=== PATIENT | male | born 1965 | race Two or more races ===

== ENCOUNTER 2017-08-04 19:41 | Emergency (ER) | payer OTHER ==
[~2017-08-04] VITALS: Ht 162.6 cm; Wt 74.8 kg
[2017-08-04 19:54] VITALS: BP 135/92
--- NOTE | 2017-08-04 20:27 | PHYS DOC ---
Past Medical History Past Medical History: No Pertinent History Past Surgical History: No Surgical History Alcohol Use: None Drug Use: None Adult General Chief Complaint Chief Complaint: HAND PROBLEM HPI HPI Patient is a 52 year old male presents the ED complaining of right hand injury times one day. Patient states he was using a jackhammer and the hammer kicked back on his right hand. States he uses a jackhammer at work with repetitive motion. Discussed pain as sharp. Rates the pain as 7 out of 10. States the pain is worse with movement of the lateral side of his hand. Denies fever, numbness/ tingling, elbow pain, dizziness, chest pain or shortness of breath. Review of Systems Review of Systems Constitutional: Denies fever or chills [] Eyes: Denies change in visual acuity, redness, or eye pain [] HENT: Denies nasal congestion or sore throat [] Respiratory: Denies cough or shortness of breath [] Cardiovascular: No additional information not addressed in HPI [] GI: Denies abdominal pain, nausea, vomiting, bloody stools or diarrhea [] : Denies dysuria or hematuria [] Musculoskeletal: Denies back pain. Complains of right hand pain. [] Integument: Denies rash or skin lesions [] Neurologic: Denies headache, focal weakness or sensory changes [] Endocrine: Denies polyuria or polydipsia [] Current Medications Current Medications Current Medications Medications (Trade) Dose Ordered Sig/Fawn Start Time Stop Time Status Last Admin Dose Admin Ibuprofen (Motrin) 800 mg 1X ONCE 08/04/17 20:30 08/04/17 20:31 DC 08/04/17 20:34 800 MG Allergies Allergies Allergies Coded Allergies Type Severity Reaction Last Updated Verified No Known Drug Allergies 06/04/14 No Physical Exam Physical Exam Constitutional: Well developed, well nourished, no acute distress, non-toxic appearance. [] HENT: Normocephalic, atraumatic, bilateral external ears normal, oropharynx moist, no oral exudates, nose normal. [] Eyes: PERRLA, EOMI, conjunctiva normal, no discharge. [] Neck: Normal range of motion, no tenderness, supple, no stridor. [] Cardiovascular:Heart rate regular rhythm, no murmur [] Lungs & Thorax: Bilateral breath sounds clear to auscultation [] Abdomen: Bowel sounds normal, soft, no tenderness, no masses, no pulsatile masses. [] Skin: Warm, dry, no erythema, no rash. [] Back: No tenderness, no CVA tenderness. [] Extremities: MILD RIGHT LATERAL HAND TENDERNESS. NO OVERLYING SKIN CHANGES OR SIGNS OF INFECTION., no cyanosis, no clubbing, ROM intact, no edema. [] Neurologic: Alert and oriented X 3, normal motor function, normal sensory function, no focal deficits noted. [] Psychologic: Affect normal, judgement normal, mood normal. [] Current Patient Data Vital Signs Vital Signs Date Time Temp Pulse Resp B/P (MAP) Pulse Ox O2 Delivery O2 Flow Rate FiO2 08/04/17 19:54 98.1 96 20 98 Room Air 98.1 EKG EKG [] Radiology/Procedures Radiology/Procedures PROCEDURE: HAND RIGHT 3V Three-view right hand radiographs 08/06/2017 Clinical history: Injury to the right hand earlier today. PA, lateral and oblique digital radiographs of the right hand were obtained. No fracture or dislocation right hand is seen. Mild degenerative changes are seen scattered throughout the interphalangeal joints of the right hand. Mild to moderate degenerative changes are seen involving the MCP joints. Severe degenerative changes are seen involving the first carpal metacarpal joint. No radiopaque foreign body is seen. Impression: No fracture or dislocation of the right hand is seen.[] Course & Med Decision Making Course & Med Decision Making Pertinent Labs and Imaging studies reviewed. (See chart for details) []X-ray negative for acute injury. Patient's pain improved. Vital stable, no acute distress. Thumb spica splint placed. Neurovascular intact post placement. Discussed follow-up with orthopedics next week. Provided contact information/ education. Discussed reasons to return to the ED. Patient understands and agrees with plan. Dragon Disclaimer Dragon Disclaimer This electronic medical record was generated, in whole or in part, using a voice recognition dictation system. Departure Departure Impression: Primary Impression: Hand injury Additional Impression: Tendonitis Disposition: 01 HOME, SELF-CARE Condition: IMPROVED Referrals: JONNY SULLIVAN MD (PCP) LESLI CORTEZ II, MD Patient Instructions: Hand Injuries, Tendon Injury Scripts Tramadol Hcl (TRAMADOL HCL) 50 Mg Tablet 1 TAB PO PRN Q6HRS, #12 TAB Prov: KRYSTYNA ALVA 08/04/17 Ibuprofen (IBUPROFEN) 800 Mg Tablet 800 MG PO PRN Q6HRS Y for INFLAMMATION, #14 TAB Prov: KRYSTYNA ALVA 08/04/17 Problem Qualifiers KRYSTYNA ALVA Aug 04, 2017 20:27
[2017-08-04] MEDS ORDERED: IBUPROFEN 800 MG TABLET. PO ONE (20:30)
[2017-08-04] MEDS ORDERED: IBUP-1060 PO (21:02)
[2017-08-04] MEDS ORDERED: TRAM50TA PO (21:17)
--- NOTE | 2017-08-05 10:41 | RAD ---
Three-view right wrist radiographs 08/04/2017 Clinical history: Right wrist injury earlier today. PA, lateral and oblique digital radiographs of the right wrist were obtained. Severe degenerative changes are seen involving the first carpometacarpal joint. No fracture or dislocation of the right wrist is seen. No radiopaque foreign body is noted. Impression: No fracture or dislocation of the right wrist is seen.
--- NOTE | 2017-08-05 10:43 | RAD ---
Three-view right hand radiographs 08/06/2017 Clinical history: Injury to the right hand earlier today. PA, lateral and oblique digital radiographs of the right hand were obtained. No fracture or dislocation right hand is seen. Mild degenerative changes are seen scattered throughout the interphalangeal joints of the right hand. Mild to moderate degenerative changes are seen involving the MCP joints. Severe degenerative changes are seen involving the first carpal metacarpal joint. No radiopaque foreign body is seen. Impression: No fracture or dislocation of the right hand is seen.
== END 2017-08-04 21:38 | disposition home or self-care (01) ==
LOC: ER 19:41
DX: S69.91XA Unspecified injury of right wrist, hand and finger(s), initial encounter (principal); M77.9 Enthesopathy, unspecified; W22.8XXA Striking against or struck by other objects, initial encounter; Y93.89 Activity, other specified; Y92.69 Other specified industrial and construction area as the place of occurrence of the external cause; Y99.8 Other external cause status
CPT/HCPCS: 29125; 73110; 73130; 99284-25